=== PATIENT | male | born 1955 | race African-American/Black ===

== ENCOUNTER 2022-03-28 07:03 | Inpatient (IN) | payer MEDICARE ==
[2022-03-25 09:34] LABS: BASOPHILS # (AUTO) 0.1 (0.0-0.1); BASOPHILS % 1.7 % (0.0-1.0); EOSINOPHILS # (AUTO) 0.1 (0.0-0.4); EOSINOPHILS % 1.2 % (0.0-6.0); HEMATOCRIT 34.7 % (38.2-49.6); HEMOGLOBIN 11.4 g/dL (14.0-18.0); LYMPHOCYTES # (AUTO) 0.8 (1.0-3.2); LYMPHOCYTES % 19.5 % (18.0-39.1); MEAN CORPUSCULAR HGB CONC 32.9 g/dL (31-35); MEAN CORPUSCULAR VOLUME 109.5 fL (81-99); MONOCYTES # (AUTO) 0.3 (0.2-0.8); MONOCYTES % 7.1 % (4.4-11.3); NEUTROPHILS % 70.3 % (38.7-80.0); PLATELET COUNT 1015 x10e3/uL (140-360); RED BLOOD COUNT 3.17 x10e6/uL (4.3-5.7); RED CELL DISTRIBUTION WIDTH 13.6 % (11.7-14.4)
[2022-03-25 12:45] LABS: PLATELET ESTIMATE MARKEDLY INCREASED
[2022-03-25 12:46] LABS: PLATELET MORPHOLOGY COMMENT NORMAL; RBC MORPHOLOGY COMMENT NORMAL
[~2022-03-28] VITALS: Ht 167.6 cm; Wt 65.8 kg
[2022-03-28 06:48] LABS: INR 1.03; PROTHROMBIN TIME 13.7 seconds (11.9-14.5)
[2022-03-28 06:49] LABS: PARTIAL THROMBOPLASTIN TIME 33.9 seconds (23.8-35.5)
[~2022-03-28 07:03] MED LIST: AMLODIPINE BESY10 MG PO; ASPIRIN EC81 MG PO; ATACAND4 MG PO; ATORVASTATIN CA20 MG PO; BICALUTAMIDE50 MG PO; BRILINTA90 MG PO; CEFTRIAXONE 1 GM VIAL ONE; FLOMAX0.4 MG PO; GENTAMICIN 80MG/NS 100 ML 200 ML IV ONE; HYDRALAZINE HCL50 MG PO; IOPAMIDOL 610MG/1ML 300 MG/ML VIAL IV ONE; ISOSORBIDE DINI20 MG PO; METOPROLOL SUCC25 MG PO; SODIUM CHLORIDE 0.9% 1000ML 1,000 ML ONE
[2022-03-28] MEDS ORDERED: Morphine 2mg Syringe 2 MG/ML SYR IV PRN (08:30)
[2022-03-28] MEDS ORDERED: DIPHENHYDRAMINE HCL 25 MG CAP PO PRN (08:30)
[2022-03-28] MEDS ORDERED: ACETAMINOPHEN 1000 MG/100 ML IV PRN (08:30)
[2022-03-28] MEDS ORDERED: ACETAMINOPHEN/CODEINE 300MG - 30MG TAB PO PRN (08:30)
[2022-03-28] MEDS ORDERED: PHENAZOPYRIDINE HCL 100 MG TAB PO PRN (08:30)
[2022-03-28] MEDS ORDERED: ONDANSETRON HCL INJ 2MG/ML 2ML 2 MG/ML VIAL IV PRN (08:30)
[2022-03-28] MEDS ORDERED: FENTANYL CITRATE/PF 100MCG/2 ML INJ ONE ×2 (08:48→12:54)
[2022-03-28 09:00] LABS: BASOPHILS # (AUTO) 0.1 (0.0-0.1); BASOPHILS % 0.9 % (0.0-1.0); EOSINOPHILS # (AUTO) 0.1 (0.0-0.4); EOSINOPHILS % 1.1 % (0.0-6.0); HEMATOCRIT 30.3 % (38.2-49.6); HEMOGLOBIN 9.5 g/dL (14.0-18.0); LYMPHOCYTES # (AUTO) 1.2 (1.0-3.2); LYMPHOCYTES % 17.8 % (18.0-39.1); MEAN CORPUSCULAR HEMOGLOBIN 35.1 pg (28-32); MEAN CORPUSCULAR HGB CONC 31.4 g/dL (31-35); MEAN CORPUSCULAR VOLUME 111.8 fL (81-99); MONOCYTES # (AUTO) 0.3 (0.2-0.8); MONOCYTES % 4.6 % (4.4-11.3); NEUTROPHILS # (AUTO) 4.9 (2.1-6.9); PLATELET COUNT 953 x10e3/uL (140-360); RED BLOOD COUNT 2.71 x10e6/uL (4.3-5.7); RED CELL DISTRIBUTION WIDTH 13.8 % (11.7-14.4)
[2022-03-28 09:18] LABS: ANION GAP 13.9 mmol/L (8-16); CALCIUM 8.4 mg/dL (8.4-10.2); CREATININE, SERUM 0.85 mg/dL (0.72-1.25); POTASSIUM 3.9 mmol/L (3.5-5.1)
[2022-03-28 09:45] LABS: PLATELET ESTIMATE MARKEDLY INCREASED; PLATELET MORPHOLOGY COMMENT NORMAL; RBC MORPHOLOGY COMMENT NORMAL
[2022-03-28 09:50] VITALS: BP 112/78
[2022-03-28 10:10] VITALS: BP 114/61
[2022-03-28 12:02] VITALS: BP 112/78
[2022-03-28] MEDS ORDERED: PHENYLEPHRINE HCL 1% 10 MG/ML VIAL ONE (12:34)
[2022-03-28] MEDS ORDERED: POVIDONE IODINE 0.05% 0.05 % ML PO ONE (12:34)
[2022-03-28] MEDS ORDERED: PROPOFOL IV EMULSION 10 MG/ML 20 ML VIAL ONE (12:34)
[2022-03-28] MEDS ORDERED: ONDANSETRON HCL INJ 2MG/ML 2ML 2 MG/ML VIAL ONE (12:34)
[2022-03-28] MEDS ORDERED: DEXAMETHASONE SOD PHOS INJ 4 MG/ML SDV ONE (12:34)
[2022-03-28] MEDS ORDERED: SEVOFLURANE INHAL SOLN 250 ML PEN BTL ONE (12:34)
[2022-03-28] MEDS ORDERED: LIDOCAINE HCL 2% LOCAL INJ 5 ML SDV VIAL INJ ONE (12:34)
[2022-03-28] MEDS ORDERED: EPHEDRINE SULFATE INJ 50 MG/ML VIAL ONE (12:34)
[2022-03-28] MEDS ORDERED: MIDAZOLAM HCL 2 MG/2 ML VIAL ONE (12:54)
[2022-03-28] MEDS: DOCUSATE SODIUM 100 MG CAP PO SCH ×2 (13:16→16:40)
[2022-03-28] MEDS: D5.45%NS/KCL 20MEQ 1,000 ML IV SCH (13:16)
[2022-03-28 16:47] VITALS: BP 119/85
[2022-03-28 20:00] VITALS: BP 120/78
[2022-03-28] MEDS: NICOTINE 21 MG/EA PATCH TOP SCH (21:21)
[2022-03-29] VITALS (7 sets, daily range): BP systolic 113–147; BP diastolic 65–89
[2022-03-29] MEDS: D5.45%NS/KCL 20MEQ 1,000 ML IV SCH ×2 (04:27→14:04)
[2022-03-29 04:53] LABS: BASOPHILS # (AUTO) 0.1 (0.0-0.1); BASOPHILS % 0.7 % (0.0-1.0); EOSINOPHILS % 0.1 % (0.0-6.0); HEMATOCRIT 30.7 % (38.2-49.6); HEMOGLOBIN 9.9 g/dL (14.0-18.0); LYMPHOCYTES # (AUTO) 1.1 (1.0-3.2); LYMPHOCYTES % 16.7 % (18.0-39.1); MEAN CORPUSCULAR HEMOGLOBIN 34.9 pg (28-32); MEAN CORPUSCULAR HGB CONC 32.2 g/dL (31-35); MEAN CORPUSCULAR VOLUME 108.1 fL (81-99); MONOCYTES # (AUTO) 0.6 (0.2-0.8); MONOCYTES % 8.8 % (4.4-11.3); NEUTROPHILS # (AUTO) 4.9 (2.1-6.9); NEUTROPHILS % 73.4 % (38.7-80.0); PLATELET COUNT 953 x10e3/uL (140-360); RED BLOOD COUNT 2.84 x10e6/uL (4.3-5.7); RED CELL DISTRIBUTION WIDTH 13.3 % (11.7-14.4)
[2022-03-29 05:15] LABS: ANION GAP 14.9 mmol/L (8-16); CALCIUM 9.2 mg/dL (8.4-10.2); CREATININE, SERUM 0.82 mg/dL (0.72-1.25); POTASSIUM 3.9 mmol/L (3.5-5.1)
[2022-03-29] MEDS ORDERED: ONDANSETRON HCL 4 MG ORAL DISINTEGRATING TAB PO PRN (08:30)
[2022-03-29] MEDS: DOCUSATE SODIUM 100 MG CAP PO SCH ×2 (09:29→16:57)
[2022-03-29] MEDS: NICOTINE 21 MG/EA PATCH TOP SCH (19:47)
[2022-03-29] MEDS ORDERED: ATORVASTATIN 40 MG TAB PO SCH (21:00)
[2022-03-30] VITALS (9 sets, daily range): BP systolic 103–132; BP diastolic 56–84
[2022-03-30] MEDS: D5.45%NS/KCL 20MEQ 1,000 ML IV SCH (04:20)
[2022-03-30 04:50] LABS: BASOPHILS # (AUTO) 0.1 (0.0-0.1); BASOPHILS % 1.2 % (0.0-1.0); EOSINOPHILS # (AUTO) 0.1 (0.0-0.4); EOSINOPHILS % 1.9 % (0.0-6.0); HEMATOCRIT 31.2 % (38.2-49.6); HEMOGLOBIN 10.2 g/dL (14.0-18.0); LYMPHOCYTES # (AUTO) 1.5 (1.0-3.2); LYMPHOCYTES % 36.3 % (18.0-39.1); MEAN CORPUSCULAR HEMOGLOBIN 35.4 pg (28-32); MEAN CORPUSCULAR HGB CONC 32.7 g/dL (31-35); MEAN CORPUSCULAR VOLUME 108.3 fL (81-99); MONOCYTES # (AUTO) 0.4 (0.2-0.8); MONOCYTES % 10.5 % (4.4-11.3); NEUTROPHILS # (AUTO) 2.1 (2.1-6.9); NEUTROPHILS % 49.9 % (38.7-80.0); PLATELET COUNT 958 x10e3/uL (140-360); RED BLOOD COUNT 2.88 x10e6/uL (4.3-5.7); RED CELL DISTRIBUTION WIDTH 13.6 % (11.7-14.4)
[2022-03-30 05:08] LABS: ANION GAP 14.1 mmol/L (8-16); CALCIUM 9.3 mg/dL (8.4-10.2); CREATININE, SERUM 0.81 mg/dL (0.72-1.25); POTASSIUM 4.1 mmol/L (3.5-5.1)
[2022-03-30] MEDS ORDERED: SODIUM CHLORIDE 0.9% 500ML 500 ML IV ONE ×2 (05:47→06:00)
[2022-03-30] MEDS ORDERED: ISOSORBIDE DINITRATE 20 MG TAB PO SCH (06:00)
[2022-03-30] MEDS ORDERED: SODIUM CHLORIDE 0.9% 500ML 500 ML ONE (06:04)
[2022-03-30] MEDS ORDERED: ASPIRIN 81 MG CHEW TAB PO ONE ×2 (06:30→07:15)
[2022-03-30 07:21] LABS: CREATINE KINASE 36 IU/L (30-200)
[2022-03-30] MEDS ORDERED: BICALUTAMIDE 50 MG TABLET PO SCH (09:00)
[2022-03-30] MEDS ORDERED: AMLODIPINE BESYLATE 10 MG TAB PO SCH (09:00)
[2022-03-30] MEDS ORDERED: METOPROLOL SUCCINATE 25 MG TAB XL PO SCH ×2 (09:00→21:00)
[2022-03-30] MEDS ORDERED: TAMSULOSIN HCL 0.4 MG CAP PO SCH (09:00)
[2022-03-30] MEDS: DOCUSATE SODIUM 100 MG CAP PO SCH ×2 (09:34→17:55)
[2022-03-30] MEDS ORDERED: LEVOFLOXACIN250 MG PO (18:30)
== END 2022-03-30 19:24 | disposition home or self-care (01) | DRG 714 ==
LOC: OR 07:03 → PACU V 09:09 → MED/SURG 09:34
PROVIDERS: ADMIT Internal Medicine; ATTEND Internal Medicine
PROC: BT141ZZ Fluoroscopy of Kidneys, Ureters and Bladder using Low Osmolar Contrast (ICD-10-PCS; 2022-03-28)
PROC: 0VT08ZZ Resection of Prostate, Via Natural or Artificial Opening Endoscopic (ICD-10-PCS; principal; 2022-03-28 07:19)
DX: C61 Malignant neoplasm of prostate (principal); R31.0 Gross hematuria; I95.9 Hypotension, unspecified; D46.9 Myelodysplastic syndrome, unspecified; I25.2 Old myocardial infarction; I10 Essential (primary) hypertension; I25.10 Atherosclerotic heart disease of native coronary artery without angina pectoris; E78.5 Hyperlipidemia, unspecified; M19.90 Unspecified osteoarthritis, unspecified site; J45.909 Unspecified asthma, uncomplicated; Z80.42 Family history of malignant neoplasm of prostate; Z79.890 Hormone replacement therapy; Z95.5 Presence of coronary angioplasty implant and graft
CPT/HCPCS: 0223U; 36415; 71046; 74420; 80048; 82550; 82553; 83735; 84484; 85025; 85610; 85730; 88304; 88305; 93005; 94799; 96361; C1758; J0696; J1100; J1580; J2001; J2250; J2370; J2405; J3010; J7030; J7040